=== PATIENT | male | born 1960 | race Caucasian/White ===

== ENCOUNTER 2021-09-10 10:38 | Emergency (ER) | payer BC ==
[~2021-09-10] VITALS: Ht 182.9 cm; Wt 94.8 kg
--- NOTE | 2021-09-10 10:45 | NUR ---
Pt triaged and walked ambulatory to 4 for evaluation.
--- NOTE | 2021-09-10 10:47 | NUR ---
Pt alert and oriented x 3 upon face to face assessment. Here from home reporting L back pain 5/10 radiating to upper chest area. Denies SOB or any cardiac history. Speaking in full sentences without complication. Placed on clean up helper banquet. Pending MD bowles.
[2021-09-10 10:49] VITALS: BP_SYST 187
--- NOTE | 2021-09-10 11:15 | NUR ---
ER Dr. Betancourt at bedside examining patient.
[2021-09-10] MEDS ORDERED: KETOROLAC TROMETHAMINE 15 MG VIAL IVP ONE (11:30)
--- NOTE | 2021-09-10 11:49 | NUR ---
# 20 gauge angiocath placed to L AC. Use of asceptic technique. Opsite placed over site. Blood return noted. Blood for lab drawn from site. Flushed with 10 cc of normal saline. No evidence of infiltration noted. Patient tolerated well.
[2021-09-10 12:21] LABS: BASOPHILS # (AUTO) 0.1 K/uL (0.0-0.2); EOSINOPHILS # (AUTO) 0.1 K/uL (0.0-0.4); EOSINOPHILS % (AUTO) 1.1 % (0.0-4.0); HEMATOCRIT 41.7 % (36-54); HEMOGLOBIN 14.4 g/dL (14.0-18.0); LYMPHOCYTES # (AUTO) 1.7 K/uL (1.0-5.5); LYMPHOCYTES % (AUTO) 14.4 % (20.5-51.5); MEAN CORPUSCULAR HEMOGLOBIN 29 pg (27-31); MEAN CORPUSCULAR HGB CONC 35 % (32-36); MEAN CORPUSCULAR VOLUME 84 fL (79.0-98.0); MONOCYTES # (AUTO) 1.1 K/uL (0.0-1.0); NEUTROPHILS # (AUTO) 8.8 K/uL (1.8-7.7); NEUTROPHILS % (AUTO) 74.5 % (40.0-70.0); PLATELET COUNT (AUTO) 211 K/uL (130-430); RED BLOOD CELL COUNT(AUTO) 4.99 MIL/uL (4.2-6.2); RED CELL DISTRIBUTION WIDTH 13.7 % (9.0-15.0); WHITE BLOOD COUNT (AUTO) 11.8 K/uL (4.8-10.8)
[2021-09-10] MEDS ORDERED: methocarbamoL 500 MG TABLET PO ONE (13:15)
[2021-09-10 13:22] LABS: ANION GAP 5 (5-15); CALCIUM 8.5 mg/dL (8.4-11.0); CHLORIDE 108 mmol/L (98-107); GLUCOSE 98 mg/dL (70-99); SODIUM SERUM 140 mmol/L (136-145); UREA NITROGEN, BLOOD 13 mg/dL (8-21)
[2021-09-10 13:23] LABS: ALANINE AMINOTRANSFERASE 37 U/L (12-78); ALBUMIN 3.7 g/dL (3.4-4.8); ASPARTATE AMINOTRANSFERASE 30 U/L (10-37); CREATININE 0.95 mg/dL (0.55-1.30); GFR AFRICAN AMERICAN 103 mL/min (>90); TOTAL BILIRUBIN 1.6 mg/dL (0.0-1.0)
[2021-09-10] MEDS ORDERED: methocarbamoL 500 MG TABLET ONE (13:52)
--- NOTE | 2021-09-10 14:01 | NUR ---
Dr Betancourt to bedside to update pt and inform of dispo moving forward.
[2021-09-10] MEDS ORDERED: AMLO5TAB4 PO (14:13)
[2021-09-10] MEDS ORDERED: LIDO1ADH7 TP (14:13)
[2021-09-10] MEDS ORDERED: IBUP-1969 PO (14:13)
[2021-09-10] MEDS ORDERED: amLODIPine BESYLATE 5 MG TABLET PO ONE (14:15)
[2021-09-10 15:35] VITALS: BP_SYST 178
--- NOTE | 2021-09-10 15:36 | NUR ---
Patient given written and verbal discharge instructions and verbalizes understanding. ER Dr. Serafin HUTSON discussed with patient the results and treatment provided. Patient in stable condition. ID arm band removed. IV catheter removed intact and dressing applied, no active bleeding. Rx of Norvasc, ibuprofen, lidocaine given. Patient educated on pain management and to follow up with PMD. Pain Scale 0/10.Opportunity for questions provided and answered. Medication side effect fact sheet provided.
== END 2021-09-10 15:36 | disposition home or self-care (01) ==
LOC: SED 10:38
DX: M25.512 Pain in left shoulder (principal); R03.0 Elevated blood-pressure reading, without diagnosis of hypertension; F17.200 Nicotine dependence, unspecified, uncomplicated; Z79.899 Other long term (current) drug therapy
CPT/HCPCS: 36415; 71045; 73030; 80053; 84484; 85025; 93005; 96374; 99285; J1885